=== PATIENT | male | born 1995 | race African-American/Black ===

== ENCOUNTER 2020-05-30 01:58 | Emergency (ER) | payer MEDICAID, OTHER, SELFPAY ==
[2020-05-30] MEDS ORDERED: Boostrix 0.5 ML (Tdap) VIAL ONE (02:32)
[2020-05-30] MEDS ORDERED: Bacitracin 1 PK ONE (03:26)
--- NOTE | 2020-05-30 10:53 | RAD ---
RIGHT HAND RADIOGRAPHS THREE VIEWS: 05/30/20 PROVIDED CLINICAL HISTORY: Pain status post injury. FINDINGS: No evidence for radiopaque foreign body. No evidence for fracture or other acute osseous abnormality. If there is persistent clinical concern, conservative management and follow-up imaging are advised. IMPRESSION: As above. POS: JASBIR
--- NOTE | 2020-05-30 10:54 | RAD ---
RIGHT WRIST RADIOGRAPHS THREE VIEWS: 05/30/20 PROVIDED CLINICAL HISTORY: Pain status post injury. FINDINGS: There is no evidence for radiopaque foreign body. There is no evidence for fracture or other acute os seous abnormality. If there is persistent clinical concern, conservative management and follow-up imaging are advised. IMPRESSION: As above. POS: JASBIR
== END 2020-05-30 03:37 | disposition home or self-care (01) ==
LOC: ERS 01:58
DX: S61.512A Laceration without foreign body of left wrist, initial encounter (principal); S51.812A Laceration without foreign body of left forearm, initial encounter; S61.210A Laceration without foreign body of right index finger without damage to nail, initial encounter; S61.212A Laceration without foreign body of right middle finger without damage to nail, initial encounter; F31.9 Bipolar disorder, unspecified; F25.9 Schizoaffective disorder, unspecified; F17.210 Nicotine dependence, cigarettes, uncomplicated; W22.8XXA Striking against or struck by other objects, initial encounter; Z23 Encounter for immunization
CPT/HCPCS: 12001; 12034; 90471; 90715